=== PATIENT | female | born 1960 ===

== ENCOUNTER 2018-04-09 11:30 | Outpatient (CLI) | payer OTHER ==
[~2018-04-09 11:30] MED LIST: AMBIEN CR12.5 MG/BL PO; CATAFLAM50 MG PO
== END 2018-04-09 11:38 | disposition home or self-care (01) ==
LOC: LAB 11:30
DX: R31.0 Gross hematuria (principal); N30.00 Acute cystitis without hematuria

== ENCOUNTER 2018-04-10 07:21 | Outpatient (CLI) | payer OTHER | END 2018-04-10 07:35 | disposition home or self-care (01) | LOC: TOM 07:21 | DX: R31.0 Gross hematuria (principal) ==

== ENCOUNTER 2019-01-22 09:09 | Outpatient (CLI) | payer OTHER | END 2019-01-22 09:16 | disposition home or self-care (01) | LOC: NUCLEAR 09:09 | DX: K82.9 Disease of gallbladder, unspecified (principal) | CPT/HCPCS: 78227; A9537 ==

== ENCOUNTER 2020-12-24 05:55 | Inpatient (IN) | payer OTHER ==
[~2020-12-24] VITALS: Ht 30.5 cm; Wt 5.0 kg
== END 2020-12-25 18:13 | disposition home or self-care (01) | DRG 572 ==
LOC: CIR.AMB 05:55 → O/R 16:44 → SURH 16:49 → SURG 17:07
PROVIDERS: ADMIT Plastic Surgery; ATTEND Plastic Surgery
PROC: 0JB80ZZ Excision of Abdomen Subcutaneous Tissue and Fascia, Open Approach (ICD-10-PCS; 2020-12-24)
PROC: 0H0V0ZZ Alteration of Bilateral Breast, Open Approach (ICD-10-PCS; principal; 2020-12-24 07:00)
DX: N64.81 Ptosis of breast (principal); M62.08 Separation of muscle (nontraumatic), other site

== ENCOUNTER 2021-06-16 14:30 | Outpatient (CLI) | payer OTHER | END 2021-06-16 14:37 | disposition home or self-care (01) | LOC: LAB 14:30 | PROVIDERS: ATTEND Radiology Diagnostic Radiology | DX: R31.0 Gross hematuria (principal) ==

== ENCOUNTER 2021-06-20 07:08 | Outpatient (CLI) | payer OTHER | END 2021-06-20 07:11 | disposition home or self-care (01) | LOC: TOM 07:08 | PROVIDERS: ATTEND Urology | DX: K59.09 Other constipation (principal); R31.0 Gross hematuria; N28.89 Other specified disorders of kidney and ureter ==

== ENCOUNTER 2021-06-23 17:09 | Outpatient (CLI) | payer OTHER | END 2021-06-23 17:13 | disposition home or self-care (01) | LOC: LAB 17:09 | PROVIDERS: ATTEND Urology | DX: N30.10 Interstitial cystitis (chronic) without hematuria (principal) ==